=== PATIENT | female | born 1995 | race Hispanic/Latino ===

== ENCOUNTER 2021-06-01 03:29 | Inpatient (IN) | payer OTHER, SELFPAY ==
[2021-05-31 16:58] LABS: Absolute Lymphocytes (CBC) 1.5 K/uL (0.7-4.9); Basophils % 0.4 % (0-1.3); Hematocrit 30.5 % (36.0-45.0); Lymphocytes % 20.8 % (15.3-44.8); MPV 11.3 fL (7.6-11.3); RBC Red Blood Cell Count 3.46 M/uL (3.86-4.86)
[2021-05-31 17:06] LABS: Urine Appearance CLEAR (Clear); Urine Bilirubin NEGATIVE (Negative); Urine Blood NEGATIVE (Negative); Urine Color YELLOW (Yellow); Urine Glucose NEGATIVE (Negative); Urine Protein TRACE (Negative); Urine Specific Gravity >=1.030 (1.005-1.030); Urine Urobilinogen 0.2 mg/dL (0.2-1.0); Urine pH 6.5 (5.0-7.0)
[2021-05-31 17:15] LABS: Protime INR 0.91
[2021-05-31 17:20] LABS: Urine Bacteria <20 /HPF (<20); Urine Mucus 2+ /HPF (NONE SEEN); Urine RBC <5 /HPF (NONE SEEN)
[2021-06-01 01:05] LABS: RPR (Rapid Plasma Reagin) NON-REACT (NON-REACT)
[2021-06-01] MEDS ORDERED: Ringers Lactate 1,000 ML IV ONE ×2 (04:03)
[2021-06-01] MEDS ORDERED: Ringers Lactate 1,000 ML IV PRN (04:04)
[2021-06-01] MEDS ORDERED: NA CIT/CITRIC AC 30 ML ORAL UDC PO ONE (04:10)
[2021-06-01] MEDS ORDERED: FAMOTIDINE 20 MG/2 ML VIAL IV ONE (04:11)
[2021-06-01 04:53] VITALS: BMI 29.0
[2021-06-01] MEDS ORDERED: CEFAZOLIN 2 GM IN 0.9% NACL 2 GM/100 ML BAG IVPB SCH (05:00)
[2021-06-01] MEDS ORDERED: CEFAZOLIN 1GM (PREMIX IV) 1 GM/50 ML BAG IV SCH (05:00)
[2021-06-01] MEDS ORDERED: METOCLOPRAMIDE 10 MG/2mL INJ IV SCH (05:00)
[2021-06-01] MEDS ORDERED: Ringers Lactate 1,000 ML IV SCH (05:00)
[2021-06-01] MEDS ORDERED: OXYTOCIN 10 UNIT/ML ML ONE (05:25)
[2021-06-01] MEDS ORDERED: MORPHINE SULFATE/PF 1 MG/ML (10 ML AMP) ONE (05:25)
[2021-06-01] MEDS ORDERED: ONDANSETRON 4 MG/2 ML VIAL ONE (05:29)
[2021-06-01] MEDS ORDERED: METHYLERGONOVINE 0.2MG/ML AMP IM ONE (05:33)
[2021-06-01] MEDS ORDERED: CEFAZOLIN/SWI 2gm 2 GM/20 ML SYR ONE (05:34)
[2021-06-01] MEDS ORDERED: Phenylephrine HCl 10 MG/ML 1 ML VIAL ONE (05:43)
[2021-06-01] MEDS ORDERED: LIDOCAINE 1% MPF 5 ML VIAL ONE (05:55)
[2021-06-01] MEDS ORDERED: BUPIVACAINE 0.75% (PF) 2 ML SP ONE (06:03)
[2021-06-01] MEDS ORDERED: Mastisol Adhesive Liq ONE (06:36)
[2021-06-01] MEDS ORDERED: ACETAMINOPHEN 500 MG TAB PO PRN ×2 (06:55)
[2021-06-01] MEDS ORDERED: ONDANSETRON 4 MG/2 ML VIAL IV PRN (06:55)
[2021-06-01] MEDS ORDERED: CEFAZOLIN/NS 1gm 1 GM/50 ML BAG IV SCH (06:55)
[2021-06-01] MEDS ORDERED: BISACODYL 10 MG RECTAL SUPP RC PRN (06:55)
[2021-06-01] MEDS ORDERED: IBUPROFEN 600 MG TAB PO PRN (06:55)
[2021-06-01] MEDS ORDERED: Oxycodone HCl/Acetaminophen 1 TAB TAB PO PRN (06:55)
[2021-06-01] MEDS ORDERED: ONDANSETRON 4 MG (ODT) TAB PO PRN (06:55)
[2021-06-01] MEDS ORDERED: DIPHENHYDRAMINE 25 MG TAB/CAP PO PRN (06:55)
[2021-06-01] MEDS ORDERED: OXYTOCIN/LR 20 UNIT/1,000 ML BAG IV SCH (07:00)
[2021-06-01] MEDS ORDERED: GLYCOPYRROLATE 0.2 MG/ML SYR ONE (07:02)
--- NOTE | 2021-06-01 08:39 | OP ---
Surgeon: Manny Lan MD Agustina Burt is a 26-year-old 2, para 1, 39 weeks for repeat section. Infection; b lood loss; anesthetic complications; injury to bladder, bowel, ureter; postoperative complications; c lots in legs; pneumonia discussed. The patient knows fully well, this does not constitute all the po ssible problems that could occur during or following surgery. The patient admits she has not been ta jason her vitamins during the especially latter half of the . Her hematoc rit at the begin the was 36, is now around 30 to 31. After spinal block anesthesia, the pa tient was prepped and draped. Time-out was performed. A Pfannenstiel incision was made as close as possible to the previous incision, which is extremely difficult to see. The incision was carried to the fascia. The incision was carried bilaterally. There was significant scarring encountered. Ante rior and posterior fascial planes were developed both with blunt and sharp dissection. Peritoneal de fect was seen and entered. Significant adhesions to the anterior portion of the uterus. Bladder fla p was developed carefully. Low transverse uterine incision was created and 8 pounds male was delivered without difficulties, Apgars 9 and 9. Cord blood specimen obtained. Placenta removed manu ally. Uterus cleared of clot and blood exteriorized. Cervical os dilated with ring clamp. Uterus c losed with a running locked stitch of 1 chromic followed by 2 to 3 ntaxob-ft-whwbb stitches on the ri ght side of the incision for complete hemostasis. The gutters clear of clot and blood. Uterus repla melina in the peritoneal cavity. No further bleeding seen. Rectus muscles approximated using 2 interru pted sutures of 0 Vicryl. The fascia was closed using 1 Vicryl running from either angle to the midl ine. Subcutaneous tissue closed with 2-0 plain and then subcuticular stitch with 4-0 Monocryl was us ed to close the skin. Estimated blood loss 750 cc. The patient tolerated all procedures well and tr ansferred back to her room in good condition. Final Diagnoses: Term intrauterine , repeat section, spinal block anesthesia. Sig nificant anterior scarring noted. NBC/MODL Voice ID: [id number] Report ID: [id number]
[2021-06-01] MEDS ORDERED: NALOXONE 0.4 MG/ML VIAL IV PRN (11:29)
[2021-06-01] MEDS ORDERED: DIPHENHYDRAMINE 50 MG/ML VIAL IV PRN (11:30)
[2021-06-01] MEDS ORDERED: PROMETHAZINE INJ 25 MG/ML AMP IV PRN (11:32)
--- NOTE | 2021-06-01 12:15 | PREOPHP ---
Date of Admission: 06/01/2021 History: A __38 -jxjd-zxy 2, para 1, for repeat section. Infection; blood loss; anesthetic complications; injury to bladder, bowel, ureter; postoperative complications; clots in legs; pneumonia discussed. The patient knows fully well this does not constitute all the possible problems that could occur during or following surgery and wishes to proceed. present today during counseling and he has been with us before. Family History: Noncontributory. Past Medical History: No previous surgeries other than the . Allergies: NO ALLERGIES. Medications: vitamins prior to admission. Social History: Does not smoke. Physical Examination: HEENT: Clear. Pupils equal, round, reactive to light and accommodation. Conjunctivae well perfused. No oral, lingual, or buccal lesions. Chest and Lungs: Clear. Heart: Without murmurs, thrills, heaves, rubs. Breasts: Without masses on previous visits. Abdomen: Term size. Baby is vertex, -1 station. Cervix is closed. Extremities: Clear without edema, cyanosis, or clubbing. The placenta is located posteriorly. Assessment And Plan: We will proceed with repeat section tomorrow. She will be 39 weeks by ultrasound on surgery date tomorrow. CHAVO/LATONIA Voice ID: [id number] MTDD
[2021-06-01] MEDS: D5LR 1,000 ML with OXYTOCIN 20 UNIT IV SCH ×2 (15:19)
[2021-06-01] MEDS ORDERED: CEFAZOLIN/SWI 2gm 2 GM/20 ML SYR IV ONE (15:30)
[2021-06-01] MEDS: KETOROLAC 30 MG/ML INJ IM PRN (23:30)
[2021-06-02 00:43] VITALS: O2SAT 100
[2021-06-02] MEDS ORDERED: MAGNESIUM HYDROXIDE 8% 30 ML PO PRN (06:55)
[2021-06-02] MEDS ORDERED: METHYLERGONOVINE 0.2MG/ML AMP IM ONE (07:10)
[2021-06-02] MEDS: D5LR 1,000 ML with OXYTOCIN 20 UNIT IV SCH ×2 (07:21)
[2021-06-02] MEDS: KETOROLAC 30 MG/ML INJ IM PRN (07:52)
--- NOTE | 2021-06-02 10:24 | PN ---
Postoperatively, the patient has done well. H and H with minimal change. Incision looks good. Nohelia l signs all good. We will discontinue Metz and IV, start ambulation and p.o. intake. If all goes w kathy, probably send her home tomorrow. No postspinal block problems at this point. Full dismissal in structions given, but we will go over it again tomorrow. Immune to Rubella. Other immunizations hav e been discussed with the patient. We will go over again tomorrow. Good postop status at this point . CHAVO/LATONIA Voice ID: [id number] Report ID: [id number]
[2021-06-02] MEDS: Oxycodone HCl/Acetaminophen 1 TAB TAB PO PRN ×2 (18:06→22:13)
[2021-06-03] MEDS: Oxycodone HCl/Acetaminophen 1 TAB TAB PO PRN (02:41)
[2021-06-03 08:16] VITALS: BP 132/89; TEMP 97.1
--- NOTE | 2021-06-04 04:24 | DS ---
Date of Discharge: 06/03/2021 Afebrile, ambulating, voiding. Lochia is normal. No complaints or problems. We will let her go zoey e this morning to return to my office either Sunday or Sunday for incision check. She is to report any temperature elevation of 100 degrees or greater, severe pain, heavy bleeding, or any other type o f abnormalities. We will fill her in some analgesics, tramadol 50 mg, #25 to be taken 1 every 6 hour s as needed for discomfort. She has the hospital number, so if she has any problems over the weekend , she can call or appear for advice. She had questions about the baby during the course, I will defe r it to the dry dip worker on that. Final Diagnoses: Term intrauterine , repeat section, anterior scarring noted, but otherwise normal, now dismissed. CHAVO/LATONIA Voice ID: [id number] Report ID: [id number]
[2021-06-04 12:31] LABS: HIV AG/AB 4TH GEN Non-reactive (Non-reactive)
[2021-06-06 04:40] LABS: HBsAG Nonreactive (Nonreactive)
== END 2021-06-03 11:30 | disposition home or self-care (01) | DRG 788 ==
LOC: 2ND-WC 03:29
PROVIDERS: ADMIT Specialist; ATTEND Specialist
PROC: 10D00Z1 Extraction of Products of Conception, Low, Open Approach (ICD-10-PCS; principal; 2021-06-01 06:00)
DX: O34.211 Maternal care for low transverse scar from previous cesarean delivery (principal); Z3A.39 39 weeks gestation of pregnancy; Z37.0 Single live birth
CPT/HCPCS: 36415; 81001; 85014; 85025; 85610; 85730; 86592; 86850; 86900; 86901; 87086; 87088; 87340; 87389; 88307; J0690; J2210; J2370; J2405; J2590; J2765; J7120; J7121; U0003

== ENCOUNTER 2023-10-25 13:42 | Emergency (ER) | payer OTHER ==
--- OUTSIDE RECORDS SUMMARY | 2023-10-25 13:46 | XMS REPORT | Continuity of Care Document ---
Author Name Unknown Address [address] [place] [address] thconnect Address [address] [place] [address] 1 495 [place] [address] Care Team Providers Care Distributor Of Directories Name Role Phone Miri Marquez Attending Clinician Katy reyes [email or web address]_Quynha_S Attending Clinician ARIEL [place] Attending Clinician Petar able Doctor Unassigned, [place] Attending Clinician U navailable [email or web address]_Benitodidavida_S Admitting Clinician Katy reyes Payers Payer Name Policy Type Policy Number Effective Date Expirati on Date Source [facility]RO [facility]ELON[facility] FROM [facility] [id number] Problems Condition Name Condition Details Condition Category Status Onset Date Resolution Date Last Treatment Date Treating Clinician Comments Source 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 Problem Active 2022-0714 00:00: 00 [facility] 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, high risk on cervical specimen Human Papillomav irus Deoxyribon ucleic Acid Detected, High Risk on Cervical Specimen Problem Active 2022-07 00:00: 00 [facility] High grade squamous intraepith elial lesion on cervical Papanicola ou smear High Grade Squamous Intraepith elial Lesion on Cervical Papanicola ou Smear Problem Active 2022-07 00:00: 00 [facility] Superficia l pain on intercours e Superficia l Pain on Intercours e Problem Active 2022-07 00:00: 00 [facility] Allergies, Adverse Reactions, Alerts Allergy Name Allergy Type Status Severity Reaction(s) Onset Date Inactive Date Treating Clinician Comments Source NO KNOWN ALLERGIE S Drug Class Active [facility] Social History Social Habit Start Date Stop Date Quantity Comments Source Sex Assigned At 1995 00:00:00 1995 00:00:00 [facility] Smoking Status Start Date Stop Date Source Unknown if ever smoked [facility] Never Smoker [facility] Medications Ordered Medication Name Filled Medication Name Start Date Stop Date Current Medication? Ordering Clinician Indication Dosage Frequency Signature (SIG) Comments Components Source Cipro 500 mg tablet Take 1 tablet every 12 hours by oral route for 10 days. Cipro 500 mg tablet Take 1 tablet every 12 hours by oral route for 10 days. No 1 Q12H Cipro 500 mg tablet Take 1 tablet every 12 hours by oral route for 10 days. [facility] Xulane 150 mcg-35 mcg/24 hr transdermal patch Apply 1 patch every week by transdermal route for 30 days. Xulane 150 mcg-35 mcg/24 hr transdermal patch Apply 1 patch every week by transdermal route for 30 days. No 1patch( es) Q1W Xulane 150 mcg-35 mcg/24 hr transderma l patch Apply 1 patch every week by transderma l route for 30 days. [facility] Immunizations Ordered Immunization Name Filled Immunization Name Date Status Comments Source HPV9 HPV9 Unknown Completed [facility] Vital Signs Vital Name Observation Time Observation Value Comments S ource Body Weight 2023-10-25 00:00:00 130 [lb_av] [facility] BP Systolic 2023-10-25 00:00:00 102 mm[Hg] [facility] BMI (Body Mass Index) 2023-10-25 00:00:00 23 kg/m2 [facility] Height 2023-10-25 00:00:00 63 [in_i] [facility] Diastolic 2023-10-25 00:00:00 72 mm[Hg] [facility] Procedures Procedure Date / Time Performed Performing Clinicia n Source CT, abdomen + pelvis, w/o contrast 2023-10-25 00:00:00 [facility] ASSIGNMENT OF BENEFITS 2020-10-20 13:06:40 Docto r Unassigned, [place] [facility] Delivery 2020-07-30 00:00:00 [facility] Delivery 2017-07-30 00:00:00 [facility] Plan of Care Planned Activity Planned Date Details Comments Source Diagnostic Test Pending 2023-10-25 00:00:00 urinalysis, dipstick [code = urinalysis, dipstick] [facility] Diagnostic Test Pending 2023-10-25 00:00:00 CBC w/ auto diff [code = CBC w/ auto diff] [facility] Diagnostic Test Pending 2023-10-25 00:00:00 BMP, serum or plasma [code = BMP, serum or plasma] [facility] Diagnostic Test Pending 2023-10-25 00:00:00 infectious disease panel [code = infectious disease panel] [facility] Future Appointment 2024-05-26 10:15:00 Thelma Tran, Corin Leal; [address], [id number] [facility] Future Appointment 2023-11-09 08:15:[address]; [address], [place] [id number] [facility] Encounters Start Date/Time End Date/Time Encounter Type Admission Type Attending [facility] Care Department Encounter ID Source 2023-10-04 07:45:00 Inpatient Miri Robison [facility] [id number] [facility] 2023-10-25 00:00:00 2023-10-25 00:00:00 JOHN Harper: Corin Leal, [address], [place] [id number] , Ph. GC_GCBZW_Ka diyala_S [facility]BZ[facility]* [id number] [facility] 2023-10-16 00:00:00 2023-10-16 00:00:00 Outpatient GC_GCBZW_Ka diyala_S PRIV [facility] [id number] [facility] 2023-10-12 00:00:00 2023-10-12 00:00:00 Outpatient GC_GCBZW_Ka diyala_S [facility] [id number] [facility] 2023-09-25 00:00:00 2023-09-25 00:00:00 Outpatient GC_GCBZW_Ka diyala_S [facility] [id number] [facility] 2023-09-20 00:00:00 2023-09-20 00:00:00 Outpatient GC_GCBZW_Ka diyala_S PRIV PRIV [id number] [facility] 2023-09-14 00:00:00 2023-09-14 00:00:00 Outpatient GC_GCBZW_Ka diyala_S PRIV PRIV [id number] [facility] 2023-09-06 00:00:00 2023-09-06 00:00:00 Outpatient GC_GCBZW_Ka diyala_S PRIV PRIV [id number] [facility] 2023-09-03 00:00:00 2023-09-03 00:00:00 Outpatient GC_GCBZW_Ka diyala_S PRIV PRIV [id number] [facility] 2023-08-17 00:00:00 2023-08-17 00:00:00 Outpatient GC_GCBZW_Ka diyala_S PRIV PRIV [id number] [facility] 2023-08-09 00:00:00 2023-08-09 00:00:00 Outpatient GC_GCBZW_Ka diyala_S PRIV PRIV [id number] [facility] 2023-07-20 00:00:00 2023-07-20 00:00:00 Outpatient GC_GCBZW_Ka diyala_S PRIV PRIV [id number] [facility] 2023-07-12 00:00:00 2023-07-12 00:00:00 Outpatient GC_GCBZW_Ka diyala_S PRIV PRIV [id number] [facility] 2023-06-28 00:00:00 2023-06-28 00:00:00 Outpatient GC_GCBZW_Ka diyala_S PRIV PRIV [id number] [facility] 2023-05-25 00:00:00 2023-05-25 00:00:00 Outpatient GC_GCBZW_Ka diyala_S PRIV PRIV [id number] [facility] 2023-05-24 00:00:00 2023-05-24 00:00:00 Outpatient GC_GCBZW_Ka diyala_S PRIV PRIV [id number] [facility] 2023-05-24 00:00:00 2023-05-24 00:00:00 Outpatient GC_GCBZW_Ka diyala_S PRIV PRIV [id number] [facility] 2023-03-12 00:00:00 2023-03-12 00:00:00 Outpatient GC_GCBZW_Ka diyala_S PRIV PRIV [id number] [facility] 2023-03-12 00:00:00 2023-03-12 00:00:00 Outpatient GC_GCBZW_Ka diyala_S PRIV PRIV [id number] [facility] 2023-03-12 00:00:00 2023-03-12 00:00:00 Outpatient GC_GCBZW_Ka diyala_S PRIV PRIV [id number] [facility] 2023-03-12 00:00:00 2023-03-12 00:00:00 Outpatient GC_GCBZW_Ka diyala_S PRIV PRIV [id number] [facility] 2020-10-20 08:30:00 2020-10-20 08:30:00 Outpatient R AKINSIPE, ARIEL [facility] [id number] [facility] 2020-10-20 08:00:00 2020-10-20 08:00:00 Outpatient R AKINSIPE, ARIEL [facility] [id number] [facility] 2020-10-20 00:00:00 2020-10-20 00:00:00 Orders Only Doctor Unassigned, [place] [facility] [id number] [facility] Results Test Description Test Time Test Comments Results Result Co mments Source [facility]
[2023-10-25 14:41] LABS: Specific Gravity 1.006 (1.005-1.030)
[2023-10-25 14:42] LABS: Specific Gravity 1.006 (1.005-1.030); Sqamous Epithelial <5 /HPF (None Seen); Urine Bacteria None Seen /HPF (<20); Urine Bilirubin NEGATIVE (Negative); Urine Blood 3+ (OVER) (Negative); Urine Clarity Turbid (Clear); Urine Color Colorless (Yellow); Urine Culture Reflex Order REFLEXED; Urine Glucose NEGATIVE (Negative); Urine Ketones NEGATIVE (Negative); Urine Micro Reflex YN NO BILL MICROSCOPIC; Urine Mucus Slight /HPF (None Seen); Urine Nitrite NEGATIVE (Negative); Urine Protein NEGATIVE (Negative); Urine Urobilinogen Normal (Normal); Urine WBC 20-50 /HPF (<5); Urine pH 6.5 (5.0-7.0)
--- NOTE | 2023-10-25 14:55 | EDPHYS ---
Physician Documentation [facility] [place] [facility] Name: Agustina Ford Age: 28 yrs Sex: Female : 1995 Arrival Date: 10/25/2023 Time: 13:42 Bed 19 Private MD: Stephen Ruff ED Physician Jose Antonio Rodríguez HPI: 10/24 14:09 This 28 yrs old Female presents to ER via Ambulatory with complaints of sb4 hematuria. 14:09 Patient states that she had several episodes of blood in her urine last night. She sb4 thought it was vaginal so she went to the associate pastor today who ruled that out. She was sent to the ED to rule out a kidney stone. She does endorse some burning with urination and left lower back pain. Denies any nausea, vomiting, diarrhea, fever. States that she did have a kidney stone about 10 years ago. Historical: - Allergies: 14:05 No Known Allergies; rs5 - PMHx: 14:05 None; rs5 - PSHx: 14:05 None; rs5 - Immunization history:: Adult Immunizations unknown. - Social history:: Smoking status: Patient denies any tobacco usage or history of. ROS: 14:09 Constitutional: Negative for fever, chills, and weight loss, sb4 14:09 Back: Positive for flank pain, on the left, 14:09 : Positive for hematuria, burning with urination, 14:09 All other systems are negative, Exam: 14:09 Constitutional: This is a well developed, well nourished patient who is awake, alert, sb4 and in no acute distress. Head/Face: Normocephalic, atraumatic. Eyes: Extra-ocular motions intact. Periorbital areas with no swelling, redness, or edema. ENT: Mucous membranes moist. Cardiovascular: Regular rate and rhythm with a normal S1 and S2. Respiratory: Lungs have equal breath sounds bilaterally, clear to auscultation and percussion. No rales, rhonchi or wheezes noted. No increased work of breathing, no retractions or nasal flaring. Abdomen/GI: Soft, non-tender, no distension. Skin: Warm, dry with normal turgor. Normal color with no rashes, no lesions, and no evidence of cellulitis. MS/ Extremity: Pulses equal, no cyanosis. Neurovascular intact. Full, normal range of motion. Neuro: Awake and alert, GCS 15, oriented to person, place, time, and situation. Motor strength 5/5 in all extremities. Sensory grossly intact. 14:09 Back: CVA tenderness, that is mild, is noted on the left, Vital Signs: 13:55 BP 113 / 78; Pulse 98; Resp 14; Temp 97.9(O); Pulse Ox 100% ; rs5 14:55 BP 117 / 77; Pulse 77; Resp 18; Temp 98(O); Pulse Ox 99% on R/A; rs5 MDM: 14:07 Patient medically screened. sb4 14:09 Differential diagnosis: Pyelonephritis, UTI, nephrolithiasis, ureterolithiasis. sb4 14:51 Data reviewed: vital signs, nurses notes. sb4 14:52 Data reviewed: lab test result(s), radiologic studies, and as a result, I will sb4 discharge patient. Counseling: I had a detailed discussion with the patient and/or guardian regarding the historical points, exam findings, and any diagnostic results supporting the discharge/admit diagnosis, lab results, radiology results, to return to the emergency department if symptoms worsen or persist or if there are any questions or concerns that arise at home. 14:52 ED course: patient requesting to be discharged prior to lab/radiology results, states sb4 that her BUSINESS ANALYTICS ANALYST has access to our records and will follow up with them. 10/24 14:08 Order name: UAM; Complete Time: 14:53 sb4 10/24 14:08 Order name: Test, Urine; Complete Time: 14:43 sb4 10/24 15:02 Order name: Urine Culture EDRI 10/24 14:07 Order name: CT Abd/Pelvis - IV Contrast Only; Complete Time: 15:44 sb4 Administered Medications: No medications were administered Disposition Summary: 10/25/23 14:54 Discharge Ordered Notes: Location: Home sb4 Problem: new sb4 Symptoms: are unchanged sb4 Condition: Stable sb4 Diagnosis - Acute cystitis with hematuria sb4 Followup: sb4 - With: Miri Marquez MD - When: As needed - Reason: Recheck today's complaints, Re-evaluation by your physician Discharge Instructions: - Discharge Summary Sheet sb4 - Hematuria, Adult sb4 - Urinary Tract Infection, Adult sb4 Forms: - Thank You Letter sb4 - Antibiotic Education sb4 - Patient Portal Instructions sb4 - Leadership Thank You Letter sb4 Prescriptions: - Bactrim DS 800-160 mg Oral Tablet - take 1 tablet ORAL route every 12 hours for 7 days; 14 tablet; Refills: 0, sb4 Product Selection Permitted Signatures: Dispatcher [employer] Luz Maria Dee, PRIMO RN ko1 Mari Mosley PA-C PA-C sb4 Ian Huffman RN RN rs5
--- NOTE | 2023-10-25 14:55 | ER ---
Nurse's Notes [facility] Name: Agustina Ford Age: 28 yrs Sex: Female : 1995 Arrival Date: 10/25/2023 Time: 13:42 Bed 19 Private MD: Stephen Ruff Diagnosis: Acute cystitis with hematuria Presentation: 10/24 13:55 Chief complaint: Patient states: pain in left flank/lower back, pee with blood in it, ko1 started last night, PCP sent here for scan. Coronavirus screen: At this time, the client does not indicate any symptoms associated with coronavirus-19. Ebola Screen: No symptoms or risks identified at this time. Initial Sepsis Screen: Does the patient meet any 2 criteria? No. Patient's initial sepsis screen is negative. Does the patient have a suspected source of infection? No. Patient's initial sepsis screen is negative. Risk Assessment: Do you want to hurt yourself or someone else? Patient reports no desire to harm self or others. Onset of symptoms was October 25, 2023. 13:55 Method Of Arrival: Ambulatory ko1 13:55 Acuity: MICHAEL 3 ko1 Triage Assessment: 13:55 General: Appears in no apparent distress. comfortable, Behavior is calm, cooperative, ko1 appropriate for age. Pain: Complains of pain in left low back. Historical: - Allergies: 14:05 No Known Allergies; rs5 - PMHx: 14:05 None; rs5 - PSHx: 14:05 None; rs5 - Immunization history:: Adult Immunizations unknown. - Social history:: Smoking status: Patient denies any tobacco usage or history of. Screenin:05 [facility] ED Fall Risk Assessment (Adult) History of falling in the last 3 months, rs5 including since admission No falls in past 3 months (0 pts) Confusion or Disorientation No (0 pts) Intoxicated or Sedated No (0 pts) Impaired Gait No (0 pts) Mobility Assist Device Used No (0 pt) Altered Elimination No (0 pt) Score/Fall Risk Level 0 - 2 = Low Risk Oriented to surroundings, Maintained a safe environment. Abuse screen: Denies threats or abuse. Nutritional screening: No deficits noted. Tuberculosis screening: No symptoms or risk factors identified. Assessment: 14:05 General: Appears in no apparent distress. comfortable, Behavior is calm, cooperative. rs5 Pain: Complains of pain in back and left low back Pain currently is 3 out of 10 on a pain scale. Quality of pain is described as aching, Is continuous. Neuro: Level of Consciousness is awake, alert, obeys commands, Oriented to person, place, time, situation. Cardiovascular: Patient's skin is warm and dry. Rhythm is regular. Respiratory: Airway is patent Respiratory effort is even, unlabored, Respiratory pattern is regular, symmetrical. GI: Abdomen is round non-distended, Abd is soft and non tender X 4 quads. : Reports intermittent blood in urine. EENT: No signs and/or symptoms were reported regarding the EENT system. Derm: Skin is intact, Skin is pink, warm \\T\\ dry. Musculoskeletal: Range of motion: intact in all extremities. 14:53 Reassessment: No changes from previously documented assessment. 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 I just called my DrMike, she said she has access to my records at this facility and she will be able to view by CT and urine results. " Provider notified. Vital Signs: 13:55 BP 113 / 78; Pulse 98; Resp 14; Temp 97.9(O); Pulse Ox 100% ; rs5 14:55 BP 117 / 77; Pulse 77; Resp 18; Temp 98(O); Pulse Ox 99% on R/A; rs5 ED Course: 13:46 Patient arrived in ED. mr 13:46 Stephen Ruff MD is Private Physician. mr 13:49 [facility] sb4 13:49 Jose Antonio Rodríguez MD is Attending Physician. sb4 13:55 Arm band placed on right wrist. Patient placed in an exam room, on a stretcher, on ko1 pulse oximetry, Patient notified of wait time. 13:57 Triage completed. ko1 14:05 Patient has correct armband on for positive identification. Placed in gown. Bed in low rs5 position. Call light in reach. Side rails up X2. 14:48 CT Abd/Pelvis - IV Contrast Only In Process Unspecified. EDMS 14:48 Ian Huffman, RN is Primary Nurse. rs5 14:53 Miri Marquez MD is Referral Physician. sb4 14:53 No provider procedures requiring assistance completed. rs5 15:06 IV discontinued, intact, bleeding controlled, No redness/swelling at site. Pressure rs5 dressing applied. Administered Medications: No medications were administered Medication: 15:06 VIS not applicable for this client. rs5 Outcome: 14:54 Discharge ordered by MD. sb4 15:06 Discharged to home ambulatory, rs5 15:06 Condition: stable 15:06 Discharge instructions given to patient, family, Instructed on discharge instructions, follow up and referral plans. medication usage, Demonstrated understanding of instructions, follow-up care, medications, Prescriptions given X 1, 15:06 Patient left the ED. rs5 Addendum: 10/28/2023 07:39 Addendum: Culture Results: Positive urine culture. No further action required. Bacteria e b sensitive to prescribed antibiotic. Signatures: Dispatcher [employer] EDMS AmadorMadai, Flako Arriola mr Barb Willingham Kathy, PRIMO RN ko1 Mari Mosley PAYadiel PA-C sb4 Ian Huffman RN RN rs5 Corrections: (The following items were deleted from the chart) 10/24 13:58 13:55 Chief complaint: Patient states: pain in left flank/lower back, pee with blood in ko1 it ko1 14:54 14:53 Patient has correct armband on for positive identification. Placed in gown. Bed rs5 in low position. Call light in reach. Side rails up X2. rs5 14:56 13:55 BP 113 / 78; Pulse 98bpm; Resp 14bpm; Pulse Ox 100%; Temp 87F; ko1 rs5
--- NOTE | 2023-10-25 15:41 | RAD REPORT ---
EXAM DESCRIPTION: CT - Abdomen Pelvis W Contrast - 10/25/2023 2:46 pm CLINICAL HISTORY: Flank pain;Hematuria COMPARISON: No comparisons TECHNIQUE: Thin cut axial CT imaging of the abdomen and pelvis was performed following intravenous a dministration of 100 mL Isovue 300. Multiplanar reformats were generated and reviewed. All CT scans are performed using dose optimization technique as appropriate and may include automated exposure control or mA/KV adjustment according to patient size. FINDINGS: No suspicious findings in the lung bases. The liver, spleen, adrenal glands, and pancreas show no suspicious findings. Gallbladder and biliary tree are also without suspicious finding. Symmetric renal function is seen with no hydronephrosis or suspicious renal mass. No dilated bowel loops or bowel wall thickening. No free air, free fluid or inflammatory stranding. N o hernia, mass or bulky lymphadenopathy. Right ovarian cyst or follicle measuring 2.1 cm. The urinary bladder demonstrates diffuse wall thicke evelyn and some hyperenhancement of the mucosa. Small fibroids particularly of the anterior uterine wal l. . No suspicious bony findings. IMPRESSION: Diffuse urinary bladder wall thickening with mucosal hyperenhancement, suggesting ongoin g cystitis. No other acute findings. Small uterine fibroids.
[2023-10-25 15:43] VITALS: BP 117/77; TEMP 98; O2SAT 99
== END 2023-10-25 15:06 | disposition home or self-care (01) ==
LOC: ER 13:42
DX: N30.01 Acute cystitis with hematuria (principal)
CPT/HCPCS: 87088; 81001; 87086; 81025; 87077; 87186; 74177; 99283; Q9967